=== PATIENT | male | born 1935 | race Caucasian/White ===

== ENCOUNTER 2018-03-24 09:29 | Emergency (ER) | payer MEDICARE, OTHER ==
[~2018-03-24] VITALS: Ht 180.3 cm; Wt 100.0 kg
[~2018-03-24 09:29] MED LIST: TOPR25TA2
[2018-03-24 09:36] VITALS: BP 166/82; PULSE 102; RESP 19; TEMP 98.6; O2SAT 97
[2018-03-24 09:54] VITALS: BP 137/87; PULSE 95; RESP 18; O2SAT 97
[2018-03-24] MEDS ORDERED: AMLO10TA2 PO (10:04)
[2018-03-24] MEDS ORDERED: CLOP75TA PO (10:04)
[2018-03-24] MEDS ORDERED: LISI20TA PO (10:04)
[2018-03-24] MEDS ORDERED: RANI150T PO (10:04)
[2018-03-24] MEDS ORDERED: ATOR40TA16 PO (10:04)
[2018-03-24] MEDS ORDERED: KETOROLAC TROMETHAMINE 30 MG/ML (IVP) VIAL IVP ONE (10:15)
[2018-03-24] MEDS ORDERED: ONDANSETRON HCL 4 MG/2 ML VIAL IVP ONE (10:15)
[2018-03-24] MEDS ORDERED: MORPHINE SULFATE 4 MG/ML INJ IV PUSH ONE (10:15)
[2018-03-24] MEDS ORDERED: SODIUM CHLORIDE 0.9% FLUSH 10 ML FLUSH IV FLUSH PRN (10:15)
--- NOTE | 2018-03-24 10:25 | PD ---
HPI Chief Complaint: Abdominal Pain Time Seen by Provider: 09:46 Travel History International Travel<30 days: No Contact w/Intl Traveler<30days: No Traveled to known affect area: No History of Present Illness HPI 82-year-old man presents emergency department complaining of left lower quadrant abdominal pain radiated back starting yesterday. Pain is been severe, constant, associate with nausea and vomiting. No urinary symptoms. No dark colored urine. No change in his stools. Has never had similar pain before. No rash. Pain was severe, kept him from sleeping. He otherwise had been feeling generally well and healthy. 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 Hypertension Hyperlipidemia Social History Alcohol Use: No Tobacco Use: No Allergies-Medications (Allergen,Severity, Reaction): Coded Allergies: No Known Allergies (Verified Allergy, Mild, 03/24/18) Reported Meds & Prescriptions Reported Meds & Active Scripts Active Reported Atorvastatin (Atorvastatin Calcium) 40 Mg Tab 40 Mg PO HS Amlodipine (Amlodipine Besylate) 10 Mg Tab 10 Mg PO DAILY Ranitidine (Ranitidine HCl) 150 Mg Tab 150 Mg PO DAILY Clopidogrel (Clopidogrel Bisulfate) 75 Mg Tab 75 Mg PO DAILY Lisinopril-Hctz 20-12.5 Mg Tab 1 Tab PO DAILY Review of Systems Except as stated in HPI: all other systems reviewed are Neg Physical Exam Narrative GENERAL: Well-appearing 82-year-old man, no acute distress. SKIN: Focused skin assessment warm/dry. HEAD: Atraumatic. Normocephalic. EYES: Pupils equal and round. No scleral icterus. No injection or drainage. CARDIOVASCULAR: Regular rate and rhythm. No murmur appreciated. RESPIRATORY: No accessory muscle use. Clear to auscultation. Breath sounds equal bilaterally. GASTROINTESTINAL: Abdomen soft, minimal left lower quadrant/suprapubic abdominal tenderness. In the lower abdomen there is a midline incision from previous prostatectomy. : Normal external male genitalia. No appreciable hernias on the left. Possible old hernia scar on the left. On the right there is some soft tissue fullness is seems to be more of a inguinal lipoma than a hernia. It is not firm or characteristic of a lymph node. MUSCULOSKELETAL: No obvious deformities. No clubbing. No cyanosis. No edema. NEUROLOGICAL: Awake and alert. No obvious cranial nerve deficits. Motor grossly within normal limits. Normal speech. PSYCHIATRIC: Appropriate mood and affect; insight and judgment normal. Data Data Last Documented VS Vital Signs Date Time Temp Pulse Resp B/P (MAP) Pulse Ox O2 Delivery O2 Flow Rate FiO2 03/24/18 10:39 18 03/24/18 09:54 95 137/87 (104) 97 Room Air 03/24/18 09:36 98.6 Orders Orders Complete Blood Count With Diff (03/24/18 10:02) Comprehensive Metabolic Panel (03/24/18 10:02) Lipase (03/24/18 10:02) Urinalysis - C+S If Indicated (03/24/18 10:02) Ct Abd/Pel W/O Iv Contrast (03/24/18 10:02) Iv Access Insert/Monitor (03/24/18 10:02) Morphine Inj (Morphine Inj) (03/24/18 10:15) Ondansetron Inj (Zofran Inj) (03/24/18 10:15) Sodium Chloride 0.9% Flush (Ns Flush) (03/24/18 10:15) Ketorolac Inj (Toradol Inj) (03/24/18 10:15) Labs Laboratory Tests Test 03/24/18 10:10 03/24/18 10:20 White Blood Count 7.6 TH/MM3 Red Blood Count 5.63 MIL/MM3 Hemoglobin 16.2 GM/DL Hematocrit 47.7 % Mean Corpuscular Volume 84.7 FL Mean Corpuscular Hemoglobin 28.8 PG Mean Corpuscular Hemoglobin Concent 34.1 % Red Cell Distribution Width 14.4 % Platelet Count 244 TH/MM3 Mean Platelet Volume 8.5 FL Neutrophils (%) (Auto) 84.0 % Lymphocytes (%) (Auto) 9.6 % Monocytes (%) (Auto) 5.7 % Eosinophils (%) (Auto) 0.4 % Basophils (%) (Auto) 0.3 % Neutrophils # (Auto) 6.4 TH/MM3 Lymphocytes # (Auto) 0.7 TH/MM3 Monocytes # (Auto) 0.4 TH/MM3 Eosinophils # (Auto) 0.0 TH/MM3 Basophils # (Auto) 0.0 TH/MM3 CBC Comment DIFF FINAL Differential Comment Blood Urea Nitrogen 11 MG/DL Creatinine 1.34 MG/DL Random Glucose 124 MG/DL Total Protein 7.4 GM/DL Albumin 4.2 GM/DL Calcium Level 9.3 MG/DL Alkaline Phosphatase 89 U/L Aspartate Amino Transf (AST/SGOT) 17 U/L Alanine Aminotransferase (ALT/SGPT) 27 U/L Total Bilirubin 0.8 MG/DL Sodium Level 140 MEQ/L Potassium Level 3.8 MEQ/L Chloride Level 105 MEQ/L Carbon Dioxide Level 25.2 MEQ/L Anion Gap 10 MEQ/L Estimat Glomerular Filtration Rate 51 ML/MIN Lipase 124 U/L Urine Color YELLOW Urine Turbidity CLEAR Urine pH 5.5 Urine Specific Bliss 1.022 Urine Protein 30 mg/dL Urine Glucose (UA) NEG mg/dL Urine Ketones 10 mg/dL Urine Occult Blood NEG Urine Nitrite NEG Urine Bilirubin NEG Urine Urobilinogen LESS THAN 2.0 MG/DL Urine Leukocyte Esterase NEG Urine RBC 2 /hpf Urine Squamous Epithelial Cells 1 /hpf Urine Hyaline Casts 23 /lpf Urine Mucus FEW /lpf Microscopic Urinalysis Comment CULT NOT INDICATED MDM Medical Decision Making Medical Screen Exam Complete: Yes Emergency Medical Condition: Yes Interpretation(s) LABS: CBC is unremarkable CMP is unremarkable. Lipase is normal UA is unremarkable CT abdomen and pelvis: No acute findings identified in the abdomen or pelvis to explain the clinical symptoms. Differential Diagnosis Renal lithiasis, diverticulitis, other Narrative Course Medical decision making Is an 82-year-old man presents to the emergency department complaining of left inguinal/lower quadrant abdominal area to the back suspicious for kidney stone. I do not see any rash or evidence of zoster. Is not significant tenderness or stool changes to suggest diverticulitis. Will check labs, urine, CT, reassess. FINAL: 82-year-old man, left inguinal pain, unclear etiology. Possible occult hernia although I think is unlikely. Possible early shingles. No diverticulitis. No renal stones. Diagnosis Primary Impression: Left inguinal pain Additional Instructions: Take acetaminophen 1000 mg 3 times daily. Take tramadol sparingly if needed in addition for severe pain. If you develop a blistering rash in the area, take Valtrex as prescribed and follow-up with your primary doctor. Return to the emergency department for any new or worsening symptoms. Med/Other Pt SpecificInfo: Prescription(s) given Scripts Valacyclovir (Valtrex) 1,000 Mg Tab 1000 MG PO TID for Mgmt Viral Infection for 7 Days, #90 TAB 0 Refills Prov: Yohannes Kay MD 03/24/18 Tramadol (Tramadol) 50 Mg Tab 50 MG PO Q8H Y for PAIN, #12 TAB 0 Refills Prov: Yohannes Kay MD 03/24/18 Disposition: 01 DISCHARGE HOME Condition: Stable Yohannes Kay MD March 24, 2018 10:25
[2018-03-24 10:51] LABS: AUTOMATED NEUTROPHIL # 6.4 TH/MM3 (1.8-7.7); BASOPHIL % 0.3 % (0.0-2.0); EOSINOPHIL % 0.4 % (0.0-4.0); HEMATOCRIT 47.7 % (39.0-51.0); HEMOGLOBIN 16.2 GM/DL (13.0-17.0); LYMPH % 9.6 % (9.0-44.0); LYMPHOCYTE # 0.7 TH/MM3 (1.0-4.8); MEAN CELL VOLUME 84.7 FL (80.0-100.0); MEAN CORPUSCULAR HEMOGLOBIN 28.8 PG (27.0-34.0); MEAN CORPUSCULAR HGB CONC 34.1 % (32.0-36.0); MEAN PLATELET VOLUME 8.5 FL (7.0-11.0); MONO % 5.7 % (0.0-8.0); MONOCYTE # 0.4 TH/MM3 (0-0.9); PLATELET COUNT 244 TH/MM3 (150-450); RED BLOOD COUNT 5.63 MIL/MM3 (4.50-5.90); RED CELL DISTRIBUTION WIDTH 14.4 % (11.6-17.2); WHITE BLOOD COUNT 7.6 TH/MM3 (4.0-11.0)
[2018-03-24 10:51] LABS: BILIRUBIN, URINE NEG (NEG); BLOOD, URINE NEG (NEG); GLUCOSE,URINE NEG (NEG); HYALINE CAST, URINE 23 /lpf (RARE); KETONE, URINE 10 mg/dL (NEG); MUCUS URINE FEW /lpf (OCC); NITRITE,URINE NEG (NEG); PH, URINE 5.5 (5.0-8.5); SQUAMOUS EPITHELIAL CELL URINE 1 /hpf (0-5); URINE COLOR YELLOW (YELLW/STRAW); URINE LEUKOCYTE ESTERASE NEG (NEG)
[2018-03-24 11:11] LABS: ALKALINE PHOSPHATASE 89 U/L (45-117); TOTAL BILIRUBIN ADULT 0.8 MG/DL (0.2-1.0); TOTAL PROTEIN 7.4 GM/DL (6.4-8.2)
[2018-03-24 11:12] LABS: ALBUMIN 4.2 GM/DL (3.4-5.0); ALT (GPT) 27 U/L (12-78); AST (GOT) 17 U/L (15-37); BICARBONATE 25.2 MEQ/L (21.0-32.0); BLOOD UREA NITROGEN 11 MG/DL (7-18); CALCIUM 9.3 MG/DL (8.5-10.1); CHLORIDE 105 MEQ/L (98-107); CREATININE 1.34 MG/DL (0.60-1.30); GLOMERULAR FILTRATION RATE 51 ML/MIN (>89); GLUCOSE,RANDOM 124 MG/DL (74-106); SODIUM (NA) 140 MEQ/L (136-145)
--- NOTE | 2018-03-24 11:29 | RADRPT ---
EXAM DATE/TIME: 03/24/2018 10:51 [facility] COMPARISON: No previous studies available for comparison. INDICATIONS : Left flank and inguinal pain. Vomiting. ORAL CONTRAST: No oral contrast ingested. RADIATION DOSE: 10.56 CTDIvol (mGy) MEDICAL HISTORY : Hypertension. Carcinoma, prostate. SURGICAL HISTORY : Appendectomy. Prostatectomy. ENCOUNTER: Initial ACUITY: 1 day PAIN SCALE: 7/10 LOCATION: Left flank TECHNIQUE: Volumetric scanning of the abdomen and pelvis was performed. Using automated exposure control and ad justment of the mA and/or kV according to patient size, radiation dose was kept as low as reasonably achievable to obtain optimal diagnostic quality images. DICOM format image data is available electro nically for review and comparison. FINDINGS: LOWER LUNGS: There is bronchiectasis in both lower lobes with dependent atelectasis. LIVER: Homogeneous density with a low density lesion in the left lobe measuring 12 mm and having density anil surements consistent with a cyst. There is no dilation of the biliary tree. There are calcified ston es in the gallbladder. No wall thickening or inflammation is present. SPLEEN: Normal size without lesion. PANCREAS: Within normal limits. KIDNEYS: Normal in size and shape. There is no mass or hydronephrosis. There are least 5 low density lesions in the right kidney measuring up to 3.7 cm and there are at least 4 low-density lesions in the left k idney measuring up to 5 cm. All of these have density measurements consistent with cysts. A 2 mm nono bstructing stone is present in the left lower pole collecting system. ADRENAL GLANDS: Within normal limits. VASCULAR: There is no aortic aneurysm. There is severe atherosclerotic disease. BOWEL/MESENTERY: The stomach, small bowel, and colon demonstrate no acute abnormality. There is no free intraperitone al air or fluid. There is a moderate size hiatal hernia. ABDOMINAL WALL: Within normal limits. RETROPERITONEUM: There is no lymphadenopathy. BLADDER: No wall thickening or mass. REPRODUCTIVE: Prostate gland is absent with clips located posterior to the urinary bladder and anterior to the rect um. INGUINAL: There is no lymphadenopathy or hernia. MUSCULOSKELETAL: There are degenerative changes of the lumbar spine. No lytic or blastic lesion is seen. CONCLUSION: 1. No acute finding is identified in the abdomen or pelvis to explain the clinical symptoms. No acute abnormality is identified. 2. Nonacute findings include cholelithiasis, severe atherosclerotic disease, and multiple bilateral r enal cystic lesions and a single left hepatic cyst. Florentin Nielsen MD on March 24, 2018 at 11:21 Board Certified Radiologist. This report was verified electronically.
[2018-03-24 11:30] VITALS: BP 156/89; PULSE 89; RESP 18; O2SAT 97
[2018-03-24 11:40] VITALS: RESP 18
[2018-03-24] MEDS ORDERED: VALT1TAB PO (11:44)
[2018-03-24] MEDS ORDERED: TRAM50TA PO (11:44)
[2018-03-24 13:00] VITALS: BP 147/74
== END 2018-03-24 13:01 | disposition home or self-care (01) ==
LOC: NEPE 09:29
DX: R10.32 Left lower quadrant pain (principal); E78.5 Hyperlipidemia, unspecified; I10 Essential (primary) hypertension
CPT/HCPCS: 74176; 80053; 81001; 83690; 85025; 96374; 96375; 99284; J1885; J2270; J2405